=== PATIENT | male | born 1980 | race Caucasian/White ===

== ENCOUNTER → 2021-09-21 | Outpatient (CLI) | payer OTHER | END | disposition home or self-care (01) | LOC: PPH VACUNA 07:00 | PROVIDERS: ATTEND Emergency Medicine Pediatric Emergency Medicine | DX: Z23 Encounter for immunization (principal) ==

== ENCOUNTER 2022-03-21 00:35 | Emergency (ER) | payer OTHER ==
[~2022-03-21] VITALS: Ht 182.9 cm; Wt 81.6 kg
== END 2022-03-21 02:34 | disposition home or self-care (01) ==
LOC: ER 00:35
DX: J02.9 Acute pharyngitis, unspecified (principal)